=== PATIENT | female | born 1970 | race Caucasian/White ===

== ENCOUNTER 2018-12-24 11:24 | Emergency (ER) | payer BC, OTHER ==
[~2018-12-24] VITALS: Ht 177.8 cm; Wt 72.6 kg
[2018-12-24 11:30] VITALS: BP_SYST 190
[2018-12-24 12:38] VITALS: BP_SYST 190
== END 2018-12-24 12:38 | disposition home or self-care (01) ==
LOC: SED 11:24
DX: M54.5 Low back pain (principal); R03.0 Elevated blood-pressure reading, without diagnosis of hypertension; F41.9 Anxiety disorder, unspecified; F17.200 Nicotine dependence, unspecified, uncomplicated; Z71.6 Tobacco abuse counseling
CPT/HCPCS: 72100-TC; 74018; 99283